=== PATIENT | female | born 1935 | race Caucasian/White ===

== ENCOUNTER 2024-02-20 18:22 | Emergency (ER) | payer MEDICARE, OTHER, SELFPAY ==
[2024-02-20 18:41] VITALS: BP 159/74; PULSE 68; RESP 16; TEMP 37.3; O2SAT 95
--- NOTE | 2024-02-20 18:48 | XR_ITS ---
Examination: CT brain head without contrast. 2-D sagittal coronal reconstructions Date and time of exam:February 20, 2024 1857 hrs. Comparison September 13, 2018 Indications: Onset dizziness and nausea today CTDI: vol (mGy):44.4 DLP: (mGycm):900 Technique: Multiple CT axial sections of the brain have been obtained, 5 mm slice thickness. Contrast has not been administered. 2-D sagittal, coronal reconstructions have been obtained Low dose protocols were performed. One or more of the following dose reduction techniques were used; automated exposure control, adjustment of the mA and/or KV according to patient size, use of iterative reconstruction technique. Findings: No significant ventricular enlargement. Intra-axial or extra-axial hemorrhage density is not seen. No mass effect or midline shift Basal cisterns are not remarkable. Fourth ventricle is midline. Cranial vault intact. Old infarct right cerebellar hemisphere Impression: Negative for acute hemorrhage, mass effect or midline shift If symptoms persist, consider brain MRI follow-up, stroke protocol
--- NOTE | 2024-02-20 18:49 | EKG_ITS ---
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
--- NOTE | 2024-02-20 18:56 | PD.EDDIZZY ---
ED Dizzyness RME/HPI General Chief Complaint: Dizziness Stated Complaint: Low blood pressure, low heart rate, dizzy Time Seen by Provider: 02/20/24 18:35 Arrival date/time: 02/20/24 18:22 RME / HPI RME / HPI Narrative: This section includes all my notes and documentations, including HPI, PE, and ED course. Marco A Chambers MD HPI: 88-year-old female here with several days of dizziness. She describes spinning sensation with nausea associated with moving, especially her head. No syncope or near syncope. No headache. No fever or chills. No cough or congestion. No chest pain or shortness of breath. No speech or visual impairment. No loss of power in the arms or legs. No chest pain or shortness of breath. No other complaints. ROS: All negative except as documented in HPI. Physical Exam: General: Alert and oriented. No acute distress when remaining still. Eyes: Conjunctivae and lids clear. EOMI. PERRL. ENT: No nasal congestion. Pharynx normal. Tympanic membrane normal bilaterally. Neck: Supple. No carotid bruit. No JVD. Heart: RRR. Lungs: No respiratory distress. Good air movement. No rhonchi, wheezing, rales. Abdomen: Soft and nontender. Legs: No clubbing, cyanosis, edema. Skin: Warm and dry. Neuro: Alert and oriented X 3. Cranial Nerves II-XII grossly intact. No peripheral motor deficits. I reviewed all diagnostic test results. My interpretation of the EKG is sinus rhythm with no acute ST?T changes. My review of the head CT report is no acute findings. Blood tests and urine tests unremarkable, including negative troponin and normal electrolytes. At this point, diagnoses include vertigo. Treatment here included Zofran and meclizine and scopolamine patch. Significant improvement noted. Recommended more outpatient workup. Based on my best medical judgment, made decision no further evaluation or treatment indicated at this time. Patient understands and agrees to the discharge instructions customized and printed, see below. Discharge instructions from Dr. Chambers: ? After extensive evaluation, there is no life-threatening condition.? Such as stroke or brain tumor or heart attack. -- Your severe symptoms are due to vertigo.? This is an inner ear problem that makes you feel like you are drunk or seasick.? See attached handout. -- Use scopolamine patch and/or meclizine for your severe symptoms. -- And Zofran for nausea/vomiting.? And increase oral fluid to prevent dehydration.? Maintain clear urine.? If dark or yellow, increase oral fluid. -- And do everything very slowly.? Including moving your head.? And when you sit up or stand up, wait a minute before you progress.? -- See your private doctor on 02/21/2024. If needed, ask to help you get more care not available here in the ER.? Such as MRI imaging of your brain, physical therapy, table tilt test, and referrals to see specialists (such as neurologist and ENT specialist). -- Seek immediate medical care with worsening or with any concerns. Marco A Chambers MD Related Data Home Medications ?Medication ?Instructions ?Recorded ?Confirmed lisinopril 20 1 tab PO QDAY 12/13/20 03/20/22 mg-hydrochlorothiazide 12.5 mg tablet aspirin 81 mg tablet 81 mg PO QDAY 12/14/20 03/20/22 liraglutide 0.6 mg/0.1 mL (18 mg/3 1.2 mg subcut QDAY 12/14/20 03/20/22 mL) subcutaneous pen injector (Victoza 3-Yariel) carvedilol 3.125 mg tablet 3.125 mg PO BID 03/20/22 03/20/22 Previous Rx's ?Medication ?Instructions ?Recorded meloxicam 7.5 mg tablet 7.5 mg PO QDAY #10 tabs 02/23/22 meclizine 25 mg tablet 25 mg PO BID PRN dizziness #20 tabs 02/20/24 ondansetron 4 mg disintegrating 4 mg PO TID PRN nausea and 02/20/24 tablet vomiting 5 days #10 tabs scopolamine base 1 mg over 3 days 1 mg topical .72 hour PRN 02/20/24 transdermal patch dizziness or vertigo #4 ea Allergies Allergy/AdvReac Type Severity Reaction Status Date / Time No Known Allergies Allergy Verified 03/20/22 05:14 Course Quality Measures none Orders Category Date Time Status EKG (ED ONLY) *Do not use* NOW Care 02/20/24 18:[address] head/brain wo con Stat Exams 02/20/24 18:48 Completed EKG (ED Only) Stat Exams 02/20/24 18:49 Draft CBC Stat Lab 02/20/24 19:11 Completed CMP [Comprehensive Metabolic Panel] Stat Lab 02/20/24 19:11 Completed Magnesium Stat Lab 02/20/24 19:11 Completed Troponin I Stat Lab 02/20/24 19:11 Completed UA, C/S IF [Urinalysis, C/S if Indicated] Stat Lab 02/20/24 19:54 Completed Meclizine HCl [Antivert] Med 02/20/24 18:47 Discontinued 12.5 mg PO X1 ONE Ondansetron Odt [Zofran Odt] Med 02/20/24 18:47 Discontinued 4 mg PO X1 ONE Scopolamine [Transderm-Scop Patch] Med 02/20/24 18:47 Discontinued 1 mg TOP X1 ONE Vital Signs Vital signs: Vital Signs Temperature 99.1 F 02/20/24 18:41 Pulse Rate 68 02/20/24 18:41 Respiratory Rate 16 02/20/24 18:41 Blood Pressure 159/74 H 02/20/24 18:41 Pulse Oximetry (%) 95 02/20/24 18:41 Oxygen Delivery Method Room Air 02/20/24 18:41 Dizziness Patient data External records reviewed:: [facility] [place] previous records Clinical information provided by:: patient and family Social determinants that could affect healthcare access:: none Patient has the following chronic illnesses:: History of CVA and HTN and DM How is presenting disease/condition affected by chronic disease/condition?: uneffected by Evaluation data The following diagnostics were reviewed and interpreted by me:: lab results, radiology exam(s) and EKG tracing(s) (My interpretation of the EKG is: Sinus rhythm (63 bpm) with nonspecific ST-T changes. Marco A Chambers MD) Lab and/or radiology exams considered but not ordered:: None Interpretation Summary: Vertigo Medications / Prescriptions Medications or Prescriptions considered but not ordered:: None Medication administrations:: Medication Administration History Discontinued Medications Meclizine HCl (Meclizine Hcl 25 Mg Tablet) 12.5 mg PO X1 ONE Stop: 02/20/24 18:48 Last Admin: 02/20/24 20:14 Dose: 12.5 mg Documented By: CVL Ondansetron HCl (Ondansetron Odt 4 Mg Tabrap) 4 mg PO X1 ONE; Protocol Stop: 02/20/24 18:48 Last Admin: 02/20/24 20:11 Dose: 4 mg Documented By: CVL Scopolamine (Scopolamine 1 Mg Tdsy) 1 mg TOP X1 ONE Stop: 02/20/24 18:48 Last Admin: 02/20/24 20:12 Dose: 1 mg Documented By: CVL Zofran and meclizine and scopolamine Consultations Consultation(s) initiated? (list below): No Diagnosis Dizziness Differential Diagnosis: adverse reaction to drug, benign paroxysmal positional vertigo, orthostatic hypotension, vertebral basilar insufficiency, cerebrovascular accident, acute vestibular neuronitis, transient cerebral ischemia and other (MS, electrolyte abnormalities) Most likely diagnosis given after review of the tests above:: Vertigo Admission Indicated Admission indicated?: not indicated Explain why admission is indicated or not indicated:: Admission criteria not met Admission Request Was there a request for admission?: No Disposition Plan Disposition Plan: Discharge Discharge Attestation Discharge Attestation: The patient and all family members were given an opportunity to ask questions and understood the discharge instructions. Discharge instructions specifically effects, indications for sooner follow up or return to the emergency department, and the expected course of current diagnosis. Patient condition: Stable Discharge Plan Plan Patient Disposition: HOME (Self Care) Prescriptions/Referrals Prescriptions/Med Rec: New ondansetron 4 mg tablet,disintegrating 4 mg PO TID PRN (Reason: nausea and vomiting) 5 Days Qty: 10 0RF meclizine 25 mg tablet 25 mg PO BID PRN (Reason: dizziness) Qty: 20 0RF scopolamine base 1 mg over 3 days patch 3 day 1 mg topical .72 hour PRN (Reason: dizziness or vertigo) Qty: 4 0RF No Action lisinopril-hydrochlorothiazide 20-12.5 mg tablet 1 tab PO QDAY aspirin 81 mg Tablet 81 mg PO QDAY Victoza 3-Yariel 0.6 mg/0.1 mL (18 mg/3 mL) Pen Injector 1.2 mg SUBCUT QDAY meloxicam 7.5 mg tablet 7.5 mg PO QDAY Qty: 10 0RF carvedilol 3.125 mg Tablet 3.125 mg PO BID Rx Instructions: must administer with a meal/food Referrals: Scott Smart([facility])MD [Primary Care Provider] - In 1 week Problem List Clinical Impression: Vertigo Patient/Caregiver Discharge Instructions Discharge Activity: activity as tolerated Education Materials: ED BPV Vertigo Additional Instructions: Discharge instructions from Dr. Chambers: ? After extensive evaluation, there is no life-threatening condition.? Such as stroke or brain tumor or heart attack. -- Your severe symptoms are due to vertigo.? This is an inner ear problem that makes you feel like you are drunk or seasick.? See attached handout. -- Use scopolamine patch and/or meclizine for your severe symptoms. -- And Zofran for nausea/vomiting.? And increase oral fluid to prevent dehydration.? Maintain clear urine.? If dark or yellow, increase oral fluid. -- And do everything very slowly.? Including moving your head.? And when you sit up or stand up, wait a minute before you progress.? -- See your private doctor on 02/21/2024. If needed, ask to help you get more care not available here in the ER.? Such as MRI imaging of your brain, physical therapy, table tilt test, and referrals to see specialists (such as neurologist and ENT specialist). -- Seek immediate medical care with worsening or with any concerns. Print Language: Persian Stand Alone Forms: [employer] Award Info., Patient Portal Info Letter
[2024-02-20 19:35] LABS: Basophils % (Auto) 1 % (0-2.5); Eosinophils # (Auto) 0.2 Thou/mm3 (0.0-0.5); Eosinophils % (Auto) 4 % (0-10); Hematocrit 40.3 % (36.0-46.0); Hemoglobin 13.4 g/dL (12.0-16.0); Immature Granulocytes % (Auto) 0 % (0-0); Immature Granulocytes Auto 0.01 Thou/mm3 (0.00-0.00); Lymphocytes # (Auto) 0.6 Thou/mm3 (1.0-4.8); Lymphocytes % (Auto) 12 % (10-50); Mean Corpuscular HGB Conc 33.3 g/dl (31.0-37.0); Mean Corpuscular Volume 87 fL (80-100); Monocytes # (Auto) 0.5 Thou/mm3 (0.0-0.8); Monocytes % (Auto) 11 % (0-12); Neutrophils # (Auto) 3.7 Thou/mm3 (1.8-7.7); Neutrophils % (Auto) 74 % (37-80); Nucleated Red Blood Cell % 0 /100 WBC (0); Platelet Count 301 Thou/mm3 (140-440); RDW Standard Deviation 46.7 fL (36.4-46.3); Red Blood Count 4.62 Miln/mm3 (4.00-5.20); White Blood Count 5.1 Thou/mm3 (3.6-11.0)
[2024-02-20 20:00] LABS: Collection Type, Urine Clean Catch
[2024-02-20 20:01] LABS: Alanine Aminotransferase < 7 U/L (10-49); Albumin, Serum 4.8 gm/dL (3.4-4.8); Albumin/Globulin Ratio 2.4 (1.2-2.2); Alkaline Phosphatase 101 U/L (46-116); Anion Gap 5 (7-16); Aspartate Amino Transferase 10 U/L (0-34); BUN/Creatinine Ratio 31 Ratio (12-20); Bilirubin,Total 0.6 mg/dL (0.3-1.2); Blood Urea Nitrogen 28 mg/dL (9-23); Calcium 9.9 mg/dL (8.3-10.6); Calcium (Corrected) 9.9 mg/dL (8.5-10.1); Carbon Dioxide 29.7 mMol/L (20.0-31.0); Chloride 99 mMol/L (98-107); Creatinine (Component) 0.9 mg/dL (0.6-1.3); Glucose 125 mg/dL (74-106); Osmolality,Calculated 274 (275-295); Potassium 3.9 mMol/L (3.4-5.1); Sodium 134 mMol/L (136-145); Total Protein 6.8 gm/dL (5.7-8.2); Troponin I < 0.020 ng/mL (0.0-0.045); eGFR > 60 See Note
[2024-02-20] MEDS: ONDANSETRON ODT 4 MG TABRAP PO (20:11)
[2024-02-20] MEDS: SCOPOLAMINE 1 MG TDSY TOP (20:12)
[2024-02-20 20:13] LABS: Bilirubin,Urine Negative (Negative); Blood,Urine Negative (Negative); Clarity,Urine Clear (Clear/Hazy); Color,Urine Lt-Yellow (Lt Yel-Yel); Culture Indicated,Urine Not Indicated; Glucose, Urine Negative (Negative); Ketones,Urine Negative (Negative); Leukocyte Esterase,Urine Positive (Negative); Nitrite,Urine Negative (Negative); Protein,Urine Negative (Neg - Trace); RBC,Urine 2 /hpf (0-3); Specific Gravity,Urine 1.019 (1.001-1.035); Squamous Epithelial Cell,Urine 1 /hpf (0-5); Urobilinogen,Urine Negative mg/dL (0.0-1.0); WBC,Urine 5 /hpf (0-5)
[2024-02-20] MEDS: MECLIZINE HCL 25 MG TABLET 12.5 MG PO (20:14)
[2024-02-20 20:58] VITALS: BP 148/74; PULSE 89; RESP 18; TEMP 36.9; O2SAT 97
== END 2024-02-20 21:00 | disposition home or self-care (01) ==
PROVIDERS: Emergency Provider Emergency Medicine; PCP Family Medicine
DX: R42 Dizziness and giddiness (principal); R11.0 Nausea; I10 Essential (primary) hypertension; E11.9 Type 2 diabetes mellitus without complications; Z86.73 Personal history of transient ischemic attack (TIA), and cerebral infarction without residual deficits
CPT/HCPCS: 36415; 70450; 80053; 81001; 83735; 84484; 85025; 93005; 99284; Q0162; A9270

== ENCOUNTER 2024-05-21 18:06 | Emergency (ER) | payer MEDICARE, OTHER, SELFPAY ==
[2024-05-21] VITALS (7 sets, daily range): BP systolic 135–206; BP diastolic 77–110; PULSE 60–687; RESP 16–24; TEMP 36.7; O2SAT 93–97; BMI 30.3
--- NOTE | 2024-05-21 19:51 | XR_ITS ---
Examination: AP chest single view TECHNIQUE: AP portable upright chest single view Exam date and time: May 21, 2024 1959 hours INDICATIONS: Patient fell today with injury of the chest, chest pain FINDINGS: Mild prominence of ventricle No pneumothorax Severe osteopenia Left shoulder arthroplasty Old right-sided rib fractures, no acute rib fractures IMPRESSION: No pneumothorax
--- NOTE | 2024-05-21 19:52 | XR_ITS ---
Examination:Right hip AP, lateral, AP pelvis 3 views Technique: Hip AP lateral, AP pelvis, 3 views Exam date and time May 21:2024 2000 hours INDICATIONS: Patient fell today within the right hip, right hip pain. FINDINGS: Severe osteopenia No acute right hip fracture or dislocation Left hip bones of the pelvis is intact IMPRESSION: No acute hip or pelvic fracture If pain persists recommend one-day follow-up AP pelvis.
[2024-05-21 19:59] LABS: Collection Type, Urine Catheter
--- NOTE | 2024-05-21 20:00 | PC.NURSE ---
Pt awake, [place], denies any pain to left hip, shortening of lt leg no external rotation noted. Pt able to move left leg without any problem. C/o mild pain to rt hip area, no shortening or external rotation noted. CMST to bilat feet intact. Pt also c/o neck and tail bone pain.
[2024-05-21 20:10] LABS: Bilirubin,Urine Negative (Negative); Blood,Urine Negative (Negative); Clarity,Urine Clear (Clear/Hazy); Color,Urine Yellow (Lt Yel-Yel); Glucose, Urine Negative (Negative); Hyaline Casts,Urine < 1 /hpf (0-1); Ketones,Urine 1+ (Negative); Leukocyte Esterase,Urine Positive (Negative); Nitrite,Urine Negative (Negative); PH,Urine 5.5 (5.0-7.0); Protein,Urine Negative (Neg - Trace); RBC,Urine 3 /hpf (0-3); Specific Gravity,Urine 1.025 (1.001-1.035); Squamous Epithelial Cell,Urine 2 /hpf (0-5); Urobilinogen,Urine Negative mg/dL (0.0-1.0); WBC,Urine 17 /hpf (0-5)
--- NOTE | 2024-05-21 20:42 | XR_ITS ---
Examination: CT cervical spine without contrast 2-D sagittal reconstructions 2-D coronal reconstructions 3-D reconstructions. Exam date and time:May 21, 2024 2109 hours INDICATIONS: Patient fell today with into the neck, neck pain CTDI:vol (mGy) 7.70 DLP: (mGycm) 164 Technique: Multiple 2 mm axial sections of the cervical spine have been obtained. The coronal and sagittal reconstructions have been obtained. 3-D reconstructions have been obtained. Low dose protocols were performed. One or more of the following dose reduction techniques were used; automated exposure control, adjustment of the mA and/or KV according to patient size, use of iterative reconstruction technique. Findings: Axial sections demonstrate intact base of the skull. C1 exhibit satisfactory relationship to the odontoid. No acute cervical vertebral body fracture seen. Alignment posterior spinous processes satisfactory. 37 mm left thyroid nodule Impression: No acute cervical fracture. Prominent left thyromegaly with large nodule replacing the left thyroid lobe, recommend elective thyroid sonography follow-up
--- NOTE | 2024-05-21 20:46 | EDNOTE_ITS ---
ED Fall Injury RME/HPI General Chief Complaint: Fall Stated Complaint: RIGHT HIP PAIN/ GROUND LEVEL FALL Time Seen by Provider: 05/21/24 19:45 Arrival date/time: 05/21/24 18:06 Limitations: no limitations RME / HPI RME / HPI Narrative: DR. FARMER MAIN ED EVALUATION: 88 year old female with past medical history significant for CVA, hypertension, and diabetes presents to the Emergency Department BIBA with complaint of right hip pain secondary to fall. Patient was getting out of the shower, slipped and fell on her right side. No loss of consciousness or head injury. The floor was wet and she slipped. No dizziness or lightheadedness before falling. No blood thinners. Related Data Home Medications ?Medication ?Instructions ?Recorded ?Confirmed lisinopril 20 1 tab PO QDAY 12/13/2003/20 mg-hydrochlorothiazide 12.5 mg tablet aspirin 81 mg tablet 81 mg PO QDAY 12/14/2003/20 liraglutide 0.6 mg/0.1 mL (18 mg/3 1.2 mg subcut QDAY 12/14/20 03/20/22 mL) subcutaneous pen injector (VicQBuyza 3-Yariel) carvedilol 3.125 mg tablet 3.125 mg PO BID 03/20/22 Previous Rx's ?Medication ?Instructions ?Recorded meloxicam 7.5 mg tablet 7.5 mg PO QDAY #10 tabs 01/27 meclizine 25 mg tablet 25 mg PO BID PRN dizziness # 20 tabs 02/20/24 scopolamine base 1 mg over 3 days 1 mg topical .72 jyoti r PRN 02/20/24 transdermal patch dizziness or vertigo #4 ea Allergies Allergy/AdvReac Type Severity Reaction Status Date / Time No Known Allergies Allergy Verified 03/20/22 05:14 Review of Systems Review of Systems Systems Reviewed: All systems reviewed, normal except as documented Narrative Review of Systems: GEN: No fever, no chills, no weight loss EYES: No discharge, no visual changes, no pain HEENT: No ear pain, no congestion, no sore throat PULM: No shortness of breath, no cough, no congestion CV: No chest pain, no dyspnea on exertion, no palpitations GI: No nausea, no vomiting, no diarrhea, no pain, no constipation : No frequency, no urgency and no dysuria MUSC/SKEL: + right hip pain secondary to fall, no back pain SKIN: No rash PSYCH: No hallucinations, no depression HEME/LYMPH: No easy bleeding or bruising tendencies NEURO: No weakness, no headache Past Medical History Past Medical History CARDIAC: Positive Hypertension RESPIRATORY: Positive Bronchitis and Pneumonia GASTROINTESTINAL: Positive Gastrointestinal Disorders, Colorectal Cancer and Obesity REPRODUCTIVE: Positive Previous Pregnancies ENT: Positive Cataracts ENDOCRINE: Positive Endocrine Disorders OTHER HISTORY: Positive Falls and Colorectal Cancer Surgical History SURGICAL: Positive Abdominal Surgery, Bowel Surgery and Joint Replacement Social History SMOKING STATUS: Never smoker SECOND HAND EXPOSURE: No SUBSTANCE USE: does not use ALCOHOL: Never ED Exam General Limitations: Present no limitations General appearance: Present alert and in no apparent distress Head Head exam: Present atraumatic, normocephalic and normal inspection Eye Eye exam: Present normal appearance, PERRL and EOMI ENT ENT exam: Present normal exam, normal oropharynx and mucous membranes moist Neck Neck exam: Present normal inspection, full ROM and trachea midline Chest Chest inspection: Present normal inspection and symmetric chest wall rise Respiratory Respiratory exam: Present normal lung sounds bilaterally Cardiovascular Cardiovascular exam: Present regular rate, normal rhythm and normal heart sounds Abdominal Exam Abdominal exam: Present soft and normal bowel sounds Extremities Exam Extremities exam: Present normal inspection and full ROM; Absent other (ecchymosis, contusions or swelling to the RLE) Back Exam Back exam: Present normal inspection and full ROM Neurological Exam Neurological exam: Present alert, oriented X3 and CN II-XII intact Psychiatric Psychiatric exam: Present normal affect and normal mood Skin Skin exam: Present warm, dry, intact and normal color Course Course Course Narrative: 2221: Spoke with the [id number], who does not want the patient to stand and ambulate until she gets a CT of her hip. I explained to her that we should attempt to stand and ambulate the patient in order to see if a CT hip is indicated, but she is adimant about getting the CT hip first. 0039: Patient is able to ambulate. Patient is stable to be discharged home. Quality Measures none Orders Category Date Time Status IV [Insert IV] NOW Care 05/21/24 23:[address] cervical spine wo con Stat Exams 05/21/24 20:[address] head/brain wo con Stat Exams 05/21/24 20:[address] hip RT wo con Stat Exams 05/21/24 22:20 Completed CXRP [XR chest 1V portable] Stat Exams 05/21/24 19:51 Completed XR hip RT w pelvis 2-3V Stat Exams 05/21/24 19:52 Completed CBC Stat Lab 05/21/24 20:46 Completed CMP [Comprehensive Metabolic Panel] Stat Lab 05/21/24 20:46 Completed Urinalysis Stat Lab 05/21/24 19:34 Completed Acetaminophen Tab [Tylenol ES Tab] Med 05/21/24 22:30 Discontinued 1,000 mg PO X1 ONE Potassium Chloride [K-Dur] Med 05/21/24 22:19 Discontinued 40 meq PO X1 ONE cefTRIAXone/D5w 1gm IV premix [Rocephin/D5w 1gm IV Med 05/21/24 20:45 Discontinued premix] 1 gm in 50 ml IV X1 fentaNYL INJ [Sublimaze Inj] Med 05/21/24 22:18 Discontinued 25 mcg IVP X1 ONE Vital Signs Vital signs: Vital Signs Temperature 98.1 F 05/21/24 19:06 Pulse Rate 66 05/21/24 19:06 Respiratory Rate 24 H 05/21/24 19:06 Blood Pressure 206/110 H 05/21/24 19:06 Pulse Oximetry (%) 94 L 05/21/24 19:06 Oxygen Delivery Method Room Air 05/21/24 19:06 Fall [facility] Narrative [facility] Narrative:: Elina Treadwell am scribing for and in the presence of Dr. Farmer. Patient data External records reviewed:: [facility] previous records (Reviewed last ED visit dated 02/20/24, discharged with the following: Vertigo) and EMS form Clinical information provided by:: patient and family Social determinants that could affect healthcare access:: none Patient has the following chronic illnesses:: CVA, hypertension, and diabetes How is presenting disease/condition affected by chronic disease/condition?: exacerbated by Evaluation data The following diagnostics were reviewed and interpreted by me:: lab results and radiology exam(s) Lab and/or radiology exams considered but not ordered:: none Interpretation Summary: Procedure(s): CT head/brain wo con Accession Number(s): [id number] cc: Katina Chambers ; Otoniel Booker MD; Britta Farmer MD~ Examination: CT brain head without contrast. 2-D sagittal coronal reconstructions Date and time of exam:May 21, 2024 2109 hours Comparison February 20, 2024 CTDI: vol (mGy):48.5 DLP: (mGycm):991 INDICATIONS: Patient fell today with injury to the head, head pain Technique: Multiple CT axial sections of the brain have been obtained, 5 mm slice thickness. Contrast has not been administered. 2-D sagittal, coronal reconstructions have been obtained Low dose protocols were performed. One or more of the following dose reduction techniques were used; automated exposure control, adjustment of the mA and/or KV according to patient size, use of iterative reconstruction technique. Findings: No significant ventricular enlargement. Old infarcts left caudate nucleus right cerebellar hemisphere Intra-axial or extra-axial hemorrhage density is not seen. No mass effect or midline shift Basal cisterns are not remarkable. Fourth ventricle is midline. Cranial vault intact. Impression: Negative for acute hemorrhage, mass effect or midline shift Dictated By: Otoniel Booker MD Procedure(s): CT cervical spine wo con Accession Number(s): [id number] cc: Katina Chambers ; Otoniel Booker MD; Britta Farmer MD~ Examination: CT cervical spine without contrast 2-D sagittal reconstructions 2-D coronal reconstructions 3-D reconstructions. Exam date and time:May 21, 2024 2109 hours INDICATIONS: Patient fell today with into the neck, neck pain CTDI:vol (mGy) 7.70 DLP: (mGycm) 164 Technique: Multiple 2 mm axial sections of the cervical spine have been obtained. The coronal and sagittal reconstructions have been obtained. 3-D reconstructions have been obtained. Low dose protocols were performed. One or more of the following dose reduction techniques were used; automated exposure control, adjustment of the mA and/or KV according to patient size, use of iterative reconstruction technique. Findings: Axial sections demonstrate intact base of the skull. C1 exhibit satisfactory relationship to the odontoid. No acute cervical vertebral body fracture seen. Alignment posterior spinous processes satisfactory. 37 mm left thyroid nodule Impression: No acute cervical fracture. Prominent left thyromegaly with large nodule replacing the left thyroid lobe, recommend elective thyroid sonography follow-up Dictated By: Otoniel Booker MD Procedure(s): XR hip RT w pelvis 2-3V Accession Number(s): [id number] cc: Katina Chambers ; Otoniel Booker MD; Britta Farmer MD~ Examination:Right hip AP, lateral, AP pelvis 3 views Technique: Hip AP lateral, AP pelvis, 3 views Exam date and time May 21 2000 hours INDICATIONS: Patient fell today within the right hip, right hip pain. FINDINGS: Severe osteopenia No acute right hip fracture or dislocation Left hip bones of the pelvis is intact IMPRESSION: No acute hip or pelvic fracture If pain persists recommend one-day follow-up AP pelvis. Dictated By: Otoniel Booker MD Procedure(s): XR chest 1V portable Accession Number(s): [id number] cc: Katina Chambers ; Otoniel Booker MD; Britta Farmer MD~ Examination: AP chest single view TECHNIQUE: AP portable upright chest single view Exam date and time: May 21, 2024 1959 hours INDICATIONS: Patient fell today with injury of the chest, chest pain FINDINGS: Mild prominence of ventricle No pneumothorax Severe osteopenia Left shoulder arthroplasty Old right-sided rib fractures, no acute rib fractures IMPRESSION: No pneumothorax Dictated By: Otoniel Booker MD [facility] Report Signed Patient: [facility]. Record#: [id number] Birthdate: 1935 Age/Sex: 88 / F Location: [facility] Attending Dr: Ordering Physician: Britta Farmer MD Date of Service: 05/21/24 Procedure(s): CT hip RT wo con Accession Number(s): [id number] cc: Katina Chambers ; Otoniel Booker MD; Britta Farmer MD~ Examination: CT right hip, without contrast. 2-D sagittal reconstructions. 2-D coronal reconstructions. 3-D reconstructions. Date and time of exam:May 21, 2024 10:55 PM INDICATIONS: Patient fell today with injury to the right hip, right hip pain CTDI: vol (mGy):7.70 DLP: (mGycm):267 Technique: Multiple 1.25 mm axial sections of the pelvis right hip have been obtained. 2-D sagittal and coronal reconstructions have been obtained. 3-D reconstructions have been obtained. Low dose protocols were performed. One or more of the following dose reduction techniques were used; automated exposure control, adjustment of the mA and/or KV according to patient size, use of iterative reconstruction technique. Findings: Severe osteopenia Advanced right hip osteoarthritis Old healed fracture left hip No acute right or left hip fracture Severe osteopenia No pelvic hematoma urinary bladder intact IMPRESSION: No acute hip or pelvic fracture noted. Given the severe osteopenia, follow-up AP pelvis in 1-2 days is still recommended if pain persists Dictated By: Otoniel Booker MD Signed By: <Electronically signed by Otoniel Booker MD in OV> 05/22/24 0002 Medications / Prescriptions Medications or Prescriptions considered but not ordered:: none Medication administrations:: Medication Administration History Discontinued Medications Acetaminophen (Acetaminophen 500 Mg Tablet) 1,000 mg PO X1 ONE Stop: 05/21/24 22:31 Last Admin: 05/21/24 22:36 Dose: 1,000 mg Documented By: LB Fentanyl Citrate (Fentanyl Cit Inj 50 Mcg/Ml Amp 2ml) 25 mcg IVP X1 ONE Stop: 05/21/24 22:19 Last Admin: 05/21/24 23:20 Dose: 25 mcg Documented By: LB Ceftriaxone Sodium/Dextrose (Rocephin/D5w 1gm Iv Premix) 1 gm in 50 mls @ 100 mls/hr IV X1 ONE Stop: 05/21/24 21:14 Last Infusion: 05/21/24 22:31 Dose: Infused Documented By: Admin: 05/21/24 22:01 Dose: 100 mls/hr Documented By: LB Potassium Chloride (Potassium Chloride 20 Meq Tabcr) 40 meq PO X1 ONE Stop: 05/21/24 22:20 Last Admin: 05/21/24 22:37 Dose: 40 meq Documented By: LB see above Consultations Consultation(s) initiated? (list below): No Diagnosis Fall Differential Diagnosis: other (hip fracture, hip contusion, fall) Most likely diagnosis given after review of the tests above:: see clinical impression below Admission Indicated Admission indicated?: not indicated Admission Request Was there a request for admission?: No Disposition Plan Disposition Plan: Discharge Discharge Attestation Discharge Attestation: The patient and all family members were given an opportunity to ask questions and understood the discharge instructions. Discharge instructions specifically effects, indications for sooner follow up or return to the emergency department, and the expected course of current diagnosis. Patient condition: Stable Discharge Plan Plan Patient Disposition: HOME (Self Care) Patient condition on transfer: Stable Prescriptions/Referrals Prescriptions/Med Rec: No Action lisinopril-hydrochlorothiazide 20-12.5 mg tablet 1 tab PO QDAY aspirin 81 mg Tablet 81 mg PO QDAY Victoza 3-Yariel 0.6 mg/0.1 mL (18 mg/3 mL) Pen Injector 1.2 mg SUBCUT QDAY meloxicam 7.5 mg tablet 7.5 mg PO QDAY Qty: 10 0RF meclizine 25 mg tablet 25 mg PO BID PRN (Reason: dizziness) Qty: 20 0RF scopolamine base 1 mg over 3 days patch 3 day 1 mg topical .72 hour PRN (Reason: dizziness or vertigo) Qty: 4 0RF carvedilol 3.125 mg Tablet 3.125 mg PO BID Rx Instructions: must administer with a meal/food Referrals: Katina Chambers [Primary Care Provider] - In 1 week Problem List Clinical Impression: Contusion, UTI (urinary tract infection), Acute hypokalemia Patient/Caregiver Discharge Instructions Print Language: Afghan Stand Alone Forms: [facility] Award Info., Patient Portal Info Letter
[2024-05-21 20:58] LABS: Basophils % (Auto) 0 % (0-2.5); Eosinophils # (Auto) 0.1 Thou/mm3 (0.0-0.5); Eosinophils % (Auto) 1 % (0-10); Hematocrit 37.5 % (36.0-46.0); Hemoglobin 12.8 g/dL (12.0-16.0); Immature Granulocytes % (Auto) 0 % (0-0); Immature Granulocytes Auto 0.02 Thou/mm3 (0.00-0.00); Lymphocytes # (Auto) 0.5 Thou/mm3 (1.0-4.8); Lymphocytes % (Auto) 6 % (10-50); Mean Corpuscular HGB Conc 34.1 g/dl (31.0-37.0); Mean Corpuscular Hemoglobin 28.9 pg (25.0-35.0); Mean Corpuscular Volume 85 fL (80-100); Monocytes # (Auto) 0.6 Thou/mm3 (0.0-0.8); Monocytes % (Auto) 8 % (0-12); Neutrophils # (Auto) 6.1 Thou/mm3 (1.8-7.7); Neutrophils % (Auto) 84 % (37-80); Nucleated Red Blood Cell % 0 /100 WBC (0); Platelet Count 235 Thou/mm3 (140-440); RDW Standard Deviation 45.9 fL (36.4-46.3); Red Blood Count 4.43 Miln/mm3 (4.00-5.20); White Blood Count 7.3 Thou/mm3 (3.6-11.0)
--- NOTE | 2024-05-21 21:13 | PC.NURSE ---
pt in ct-scan.
[2024-05-21 21:16] LABS: Alanine Aminotransferase 12 U/L (10-49); Albumin/Globulin Ratio 1.8 (1.2-2.2); Alkaline Phosphatase 81 U/L (46-116); Anion Gap 10 (7-16); Aspartate Amino Transferase 25 U/L (0-34); BUN/Creatinine Ratio 35 Ratio (12-20); Bilirubin,Total 0.7 mg/dL (0.3-1.2); Blood Urea Nitrogen 21 mg/dL (9-23); Calcium 9.5 mg/dL (8.3-10.6); Calcium (Corrected) 9.5 mg/dL (8.5-10.1); Carbon Dioxide 24.8 mMol/L (20.0-31.0); Chloride 105 mMol/L (98-107); Creatinine (Component) 0.6 mg/dL (0.6-1.3); Estimated Creatinine Clearance 60.4 mL/min (>60); Globulin 2.2 gm/dL (2.3-3.5); Glucose 138 mg/dL (74-106); Osmolality,Calculated 284 (275-295); Potassium 3.1 mMol/L (3.4-5.1); Sodium 140 mMol/L (136-145); Total Protein 6.2 gm/dL (5.7-8.2); eGFR > 60 See Note
[2024-05-21] MEDS: cefTRIAXone/D5w 1gm IV premix 1 GM/50 ML BAG IV (22:01)
--- NOTE | 2024-05-21 22:20 | XR_ITS ---
Examination: CT right hip, without contrast. 2-D sagittal reconstructions. 2-D coronal reconstructions. 3-D reconstructions. Date and time of exam:May 21, 2024 10:55 PM INDICATIONS: Patient fell today with injury to the right hip, right hip pain CTDI: vol (mGy):7.70 DLP: (mGycm):267 Technique: Multiple 1.25 mm axial sections of the pelvis right hip have been obtained. 2-D sagittal and coronal reconstructions have been obtained. 3-D reconstructions have been obtained. Low dose protocols were performed. One or more of the following dose reduction techniques were used; automated exposure control, adjustment of the mA and/or KV according to patient size, use of iterative reconstruction technique. Findings: Severe osteopenia Advanced right hip osteoarthritis Old healed fracture left hip No acute right or left hip fracture Severe osteopenia No pelvic hematoma urinary bladder intact IMPRESSION: No acute hip or pelvic fracture noted. Given the severe osteopenia, follow-up AP pelvis in 1-2 days is still recommended if pain persists
[2024-05-21] MEDS: ACETAMINOPHEN 500 MG TABLET 1000 MG PO (22:36)
[2024-05-21] MEDS: POTASSIUM CHLORIDE 20 mEq TABCR 40 MEQ PO (22:37)
--- NOTE | 2024-05-21 22:44 | PC.NURSE ---
to ct-scan via [facility]
[2024-05-21] MEDS: fentaNYL CIT INJ 50 mCg/ML AMP 2ML 25 MCG IVP (23:20)
--- NOTE | 2024-05-22 00:19 | PC.NURSE ---
Dr. Suarez in room taking to pt with regards to results and planb of care.
[2024-05-22 00:24] VITALS: BP 138/64; PULSE 78; RESP 18; TEMP 36.6; O2SAT 98
--- NOTE | 2024-05-22 00:38 | PC.NURSE ---
Pt able to ambulate with minimal assist, rock well.
== END 2024-05-22 00:56 | disposition home or self-care (01) ==
PROVIDERS: Emergency Provider Emergency Medicine; PCP Nurse Practitioner Family
DX: S70.01XA Contusion of right hip, initial encounter (principal); N39.0 Urinary tract infection, site not specified; E87.6 Hypokalemia; M85.88 Other specified disorders of bone density and structure, other site; S29.9XXA Unspecified injury of thorax, initial encounter; E01.0 Iodine-deficiency related diffuse (endemic) goiter; S09.90XA Unspecified injury of head, initial encounter; W01.0XXA Fall on same level from slipping, tripping and stumbling without subsequent striking against object, initial encounter
CPT/HCPCS: 36415; 70450; 71045; 72125; 73502; 73700; 80053; 81001; 85025; 96365; 96374; 99284; J0696; J3010; A9270

== ENCOUNTER → 2024-05-28 | Outpatient (CLI) | payer MEDICARE, SELFPAY ==
--- NOTE | 2024-05-28 | XR_ITS ---
Examination: Thyroid sonography complete TECHNIQUE: Grayscale sonographic images thyroid lobes with color flow analysis Exam date and time: May 28, 2024 1343 hours INDICATIONS: Thyroid nodules on CT examination May 21, 2024, 37 mm left thyroid lobe FINDINGS: Right thyroid 4.1 cm Lower pole nodule 9 x 7 mm Left thyroid 6.2 cm Left thyroid is replaced by vascular nodule 5.8 x 4.0 x 4.7 cm IMPRESSION: Recommend ultrasound-guided fine-needle laceration of large vascular left thyroid nodule
== END | disposition home or self-care (01) ==
LOC: CDIM 13:23
PROVIDERS: PCP Family Medicine; Referring Provider Nurse Practitioner Family; Visit Provider Nurse Practitioner Family
DX: E04.1 Nontoxic single thyroid nodule (principal)
CPT/HCPCS: 76536

== ENCOUNTER → 2024-05-29 | Outpatient (CLI) | payer MEDICARE, SELFPAY ==
[2024-05-29 10:45] LABS: Glucose Estimated Average 146 mg/dL (80-131); Hemoglobin A1C 6.7 % Hgb (4.8-6.0)
[2024-05-29 11:02] LABS: Anion Gap 8 (7-16); BUN/Creatinine Ratio 29 Ratio (12-20); Blood Urea Nitrogen 20 mg/dL (9-23); Calcium 9.1 mg/dL (8.3-10.6); Carbon Dioxide 29.6 mMol/L (20.0-31.0); Cardiac Risk Estimate 2.8 RATIO (3.7-5.6); Chloride 103 mMol/L (98-107); Cholesterol 175 mg/dL (132-200); Creatinine (Component) 0.7 mg/dL (0.6-1.3); Free T4 (Free Thyroxine) 1.21 ng/dL (0.89-1.76); Glucose 133 mg/dL (74-106); HDL Cholesterol 62 mg/dL (40-60); LDL Cholesterol,Calculated 92 mg/dL (0-130); Magnesium 1.9 mg/dL (1.6-2.6); Osmolality,Calculated 285 (275-295); Potassium 4.4 mMol/L (3.4-5.1); Sodium 141 mMol/L (136-145); Triglycerides 106 mg/dL (30-150); eGFR > 60 See Note
[2024-05-29 11:44] LABS: Creatinine MALB Rnd Ur 86 mg/dL (30-125); Microalbumin Creat Ratio 8 mg/gCrea (<30); Microalbumin, Random Urine 7 mg/L (0-300)
[2024-05-29 14:05] LABS: Vitamin D 25 Hydroxy Total 32.8 ng/mL (7.3-40.2)
[2024-05-29 15:54] LABS: Vitamin B12 170 pg/mL (211-911)
[2024-06-01 07:15] LABS: Thyroid Peroxidase Antibodies* <1 IU/mL (<9)
== END | disposition home or self-care (01) ==
LOC: COPL 09:40
PROVIDERS: PCP Nurse Practitioner Family; Referring Provider Nurse Practitioner Family; Visit Provider Nurse Practitioner Family
DX: E04.1 Nontoxic single thyroid nodule (principal); E87.6 Hypokalemia; E11.65 Type 2 diabetes mellitus with hyperglycemia; E55.9 Vitamin D deficiency, unspecified; E78.5 Hyperlipidemia, unspecified; I10 Essential (primary) hypertension; E53.8 Deficiency of other specified B group vitamins
CPT/HCPCS: 36415; 80048; 80061; 82043; 82306; 82570; 82607; 83036; 83735; 84439; 84443; 86376

== ENCOUNTER → 2024-08-17 | Outpatient (CLI) | payer MEDICARE, SELFPAY ==
--- NOTE | 2024-08-17 | XR_ITS ---
Examination:Right hip AP, lateral, AP pelvis 3 views Technique: Hip AP lateral, AP pelvis, 3 views Exam date and time:August 17, 2024 1148 hours INDICATIONS: Right hip pain getting worse FINDINGS: Severe right hip osteoarthritis, severe joint space spurring and subarticular cyst formation Old healed left hip fracture, severe osteopenia IMPRESSION: Severe right hip osteoarthritis.
== END | disposition home or self-care (01) ==
LOC: CDIM 11:24
PROVIDERS: PCP Nurse Practitioner Family; Referring Provider Nurse Practitioner Family; Visit Provider Nurse Practitioner Family
DX: M16.11 Unilateral primary osteoarthritis, right hip (principal)
CPT/HCPCS: 73502

== ENCOUNTER 2024-09-10 08:39 | Emergency (ER) | payer MEDICARE, SELFPAY ==
[2024-09-10 08:42] VITALS: BP 185/107; PULSE 51; RESP 20; TEMP 36.6; O2SAT 95
[2024-09-10 09:01] VITALS: PULSE 96; BMI 29.2
--- NOTE | 2024-09-10 09:07 | PD.EDHIP ---
Lower Extremity Injury RME/HPI General Chief Complaint: Hip Injury/Pain Stated Complaint: HIP PAIN Time Seen by Provider: 09/10/24 08:59 Arrival date/time: 09/10/24 08:39 Limitations: no limitations RME / HPI RME / HPI Narrative: DR. ELLIOTT MAIN ED EVALUATION: 88 year old female presents to the Emergency Department [facility] with complaint of new-onset left hip pain beginning around 0600 hours today. The patient has a history of chronic right hip pain, but the left-sided pain is new. She reports being able to ambulate with a walker, though with discomfort. Denies any falls, trauma, loss of consciousness, or recent heavy lifting. Per [id number], the patient?s blood pressure was noted to be slightly elevated at home, prompting concern and presentation to the ED. No associated symptoms such as numbness, weakness, or bowel/bladder changes reported at this time. PMHx: Diabetes, hypertension, and a hysterectomy. Family history is significant for lymphoma (mother). Social Hx: No tobacco, alcohol, or substance use. Related Data Home Medications ?Medication ?Instructions ?Recorded ?Confirmed lisinopril 20 1 tab PO QDAY 12/13/20 03/20/22 mg-hydrochlorothiazide 12.5 mg tablet aspirin 81 mg tablet 81 mg PO QDAY 12/14/20 03/20/22 liraglutide 0.6 mg/0.1 mL (18 mg/3 1.2 mg subcut QDAY 12/14/20 03/20/22 mL) subcutaneous pen injector (Victoza 3-Yariel) carvedilol 3.125 mg tablet 3.125 mg PO BID 03/20/22 03/20/22 Previous Rx's ?Medication ?Instructions ?Recorded meloxicam 7.5 mg tablet 7.5 mg PO QDAY #10 tabs 02/23/22 meclizine 25 mg tablet 25 mg PO BID PRN dizziness #20 tabs 02/20/24 scopolamine base 1 mg over 3 days 1 mg topical .72 hour PRN 02/20/24 transdermal patch dizziness or vertigo #4 ea cephalexin 500 mg capsule 500 mg PO TID #21 caps 05/22/24 tramadol 50 mg tablet 50 mg PO Q8H PRN pain #14 tabs 09/10/24 Allergies Allergy/AdvReac Type Severity Reaction Status Date / Time No Known Allergies Allergy Verified 09/10/24 09:16 Review of Systems Review of Systems Systems Reviewed: All systems reviewed, normal except as documented Past Medical History Past Medical History CARDIAC: Positive Hypertension RESPIRATORY: Positive Bronchitis and Pneumonia GASTROINTESTINAL: Positive Gastrointestinal Disorders, Colorectal Cancer and Obesity REPRODUCTIVE: Positive Previous Pregnancies ENT: Positive Cataracts ENDOCRINE: Positive Endocrine Disorders OTHER HISTORY: Positive Falls and Colorectal Cancer Surgical History SURGICAL: Positive Abdominal Surgery, Bowel Surgery and Joint Replacement Social History SMOKING STATUS: Never smoker SECOND HAND EXPOSURE: No SUBSTANCE USE: does not use ALCOHOL: Never ED Exam General Limitations: Present no limitations General appearance: Present alert and in no apparent distress Head Head exam: Present atraumatic, normocephalic and normal inspection Eye Eye exam: Present normal appearance, PERRL and EOMI ENT ENT exam: Present normal exam, normal oropharynx and mucous membranes moist Neck Neck exam: Present normal inspection, full ROM and trachea midline Chest Chest inspection: Present normal inspection and symmetric chest wall rise Respiratory Respiratory exam: Present normal lung sounds bilaterally Cardiovascular Cardiovascular exam: Present regular rate, normal rhythm and normal heart sounds Abdominal Exam Abdominal exam: Present soft and normal bowel sounds Extremities Exam Extremities exam: Present other (slightly restricted external rotation of the left hip) Back Exam Back exam: Present normal inspection and full ROM Neurological Exam Neurological exam: Present alert, oriented X3 and CN II-XII intact Psychiatric Psychiatric exam: Present normal affect and normal mood Skin Skin exam: Present warm, dry, intact and normal color Course Quality Measures none Orders Category Date Time Status Antique Collector NOW Care 09/10/24 09:10 Active Continuous Pulse Oximetry NOW Care 09/10/24 09:10 Completed EKG (ED ONLY) *Do not use* NOW Care 09/10/24 09:10 Completed Insert IV NOW Care 09/10/24 09:[address] pelvis wo con Stat Exams 09/10/24 09:10 Completed EKG (ED Only) Stat Exams 09/10/24 09:10 Draft XR chest 1V portable Stat Exams 09/10/24 09:10 Completed CBC Stat Lab 09/10/24 10:02 Completed Comprehensive Metabolic Panel Stat Lab 09/10/24 10:02 Completed Partial Thromboplastin Time Stat Lab 09/10/24 10:02 Completed Prothrombin Time with INR Stat Lab 09/10/24 10:02 Completed Urinalysis Stat Lab 09/10/24 09:10 Ordered Famotidine Inj [Pepcid Inj] Med 09/10/24 09:11 Discontinued 20 mg IVP X1 ONE Ketorolac Inj [Toradol Inj] Med 09/10/24 09:11 Discontinued 15 mg IVP X1 ONE Morphine Inj Med 09/10/24 09:11 Discontinued 4 mg IVP X1 ONE Ondansetron Inj [Zofran Inj] Med 09/10/24 09:11 Discontinued 4 mg IVP X1 ONE Sodium Chloride 0.9% 1000 ml [Ns] 1,000 ml Med 09/10/24 09:10 Active IV 100 mls/hr Vital Signs Vital signs: Vital Signs Temperature 97.8 F 09/10/24 08:42 Pulse Rate 51 L 09/10/24 08:42 Respiratory Rate 20 09/10/24 08:42 Blood Pressure 185/107 H 09/10/24 08:42 Pulse Oximetry (%) 95 09/10/24 08:42 Oxygen Delivery Method Room Air 09/10/24 08:42 Extremity Injury, Lower MDM Narrative MDM Narrative:: I, Elina Gupta am scribing for and in the presence of Dr. Elliott. Patient data External records reviewed:: [facility] previous records and EMS form Clinical information provided by:: patient, EMS and family Social determinants that could affect healthcare access:: none Patient has the following chronic illnesses:: PMHx: Diabetes, hypertension, and a hysterectomy. Family history is significant for lymphoma (mother). Social Hx: No tobacco, alcohol, or substance use. How is presenting disease/condition affected by chronic disease/condition?: uneffected by Evaluation data The following diagnostics were reviewed and interpreted by me:: lab results, radiology exam(s) and EKG tracing(s) (My interpretation: EKG performed at 0920 hours, sinus bradycardia, rate 51, no acute changes, no STEMI) Lab and/or radiology exams considered but not ordered:: none Interpretation Summary: Procedure(s): CT pelvis wo [facility] Accession Number(s): [id number] cc: Jun Elliott MD; Katina Chambers ; Otoniel Booker MD~ Examination: CT pelvis without intravenous contrast. 2-D sagittal and coronal reconstructions. Date and time of exam:September 10, 2024, 0942 hours INDICATIONS: Left hip swelling and pain today CTDI: vol (mGy) :9.62 DLP: (mGycm) : 302 Technique: Multiple 3 mm axial sections of the pelvis have been obtained with the 64 slice high resolution scanner. 2-D sagittal and coronal reconstructions. Low dose protocols were performed. One or more of the following dose reduction techniques were used; automated exposure control, adjustment of the mA and/or KV according to patient size, use of iterative reconstruction technique. Findings: Aortic calcification no aneurysmal dilatation Left colostomy defect Urinary bladder intact Severe osteopenia Iliac bones appear intact as well as anterior rami Healed left hip fracture No acute hip or pelvic fracture Advanced right hip osteoarthritis Moderate left hip osteoarthritis IMPRESSION: Advanced right hip osteoarthritis Moderate left hip osteoarthritis No acute hip or pelvic fracture Dictated By: Otoniel Booker MD Procedure(s): XR chest 1V portable Accession Number(s): [id number] cc: Jun Elliott MD; Katina Chambers ; Otoniel Booker MD~ Examination: AP chest single view Technique one AP portable upright chest single view Date and time: September 10, 2024, 0914 hours INDICATIONS: Coughing today. FINDINGS: Mild enlargement cardiac contour. Moderate vascular congestion. No lobar pneumonia. Prominent osteopenia IMPRESSION: Moderate vascular congestion Dictated By: Otoniel Booker MD Medications / Prescriptions Medications or Prescriptions considered but not ordered:: none Medication administrations:: Medication Administration History Sodium Chloride (Ns) 1,000 mls @ 100 mls/hr IV .Q10H ONE Stop: 09/10/24 19:09 Last Admin: 09/10/24 10:08 Dose: 100 mls/hr Documented By: RD Discontinued Medications Famotidine (Famotidine Inj 10 Mg/Ml Vial 2 Ml) 20 mg IVP X1 ONE Stop: 09/10/24 09:12 Last Admin: 09/10/24 10:09 Dose: 20 mg Documented By: PALLAVI Ketorolac Tromethamine (Ketorolac Inj 30 Mg/Ml Vial) 15 mg IVP X1 ONE Stop: 09/10/24 09:12 Last Admin: 09/10/24 10:09 Dose: 15 mg Documented By: PALLAVI Morphine Sulfate (Morphine Sulf Inj 10 Mg/Ml Vial) 4 mg IVP X1 ONE Stop: 09/10/24 09:12 Last Admin: 09/10/24 10:09 Dose: 4 mg Documented By: PALLAVI Ondansetron HCl (Ondansetron Inj 2 Mg/Ml Inj 2 Ml) 4 mg IVP X1 ONE; Protocol Stop: 09/10/24 09:12 Last Admin: 09/10/24 10:08 Dose: 4 mg Documented By: PALLAVI see above Consultations Consultation(s) initiated? (list below): No Diagnosis Extremity Injury, Lower Differential Diagnosis: fracture of hip and other (hip contusion, osteoarthritis of bilateral hips) Most likely diagnosis given after review of the tests above:: Osteoarthritis of bilateral hips Admission Indicated Admission indicated?: not indicated Admission Request Was there a request for admission?: No Disposition Plan Disposition Plan: Discharge Discharge Attestation Discharge Attestation: The patient and all family members were given an opportunity to ask questions and understood the discharge instructions. Discharge instructions specifically effects, indications for sooner follow up or return to the emergency department, and the expected course of current diagnosis. Patient condition: Stable Discharge Plan Plan Patient Disposition: HOME (Self Care) Patient condition on transfer: Stable Prescriptions/Referrals Prescriptions/Med Rec: New tramadol 50 mg tablet 50 mg PO Q8H MDD 3 PRN (Reason: pain) Qty: 14 0RF No Action lisinopril-hydrochlorothiazide 20-12.5 mg tablet 1 tab PO QDAY aspirin 81 mg Tablet 81 mg PO QDAY Victoza 3-Yariel 0.6 mg/0.1 mL (18 mg/3 mL) Pen Injector 1.2 mg SUBCUT QDAY meloxicam 7.5 mg tablet 7.5 mg PO QDAY Qty: 10 0RF meclizine 25 mg tablet 25 mg PO BID PRN (Reason: dizziness) Qty: 20 0RF scopolamine base 1 mg over 3 days patch 3 day 1 mg topical .72 hour PRN (Reason: dizziness or vertigo) Qty: 4 0RF cephalexin 500 mg capsule 500 mg PO TID Qty: 21 0RF carvedilol 3.125 mg Tablet 3.125 mg PO BID Rx Instructions: must administer with a meal/food Referrals: Katina Chambers [Primary Care Provider] - In 1 week Problem List Clinical Impression: Osteoarthritis of hips, bilateral Patient/Caregiver Discharge Instructions Education Materials: Hip Osteoarthritis Additional Instructions: Take Tylenol 500 mg 2 tabs every 6 hours PLUS Advil 200 mg gel 2 tablets as needed for pain. Please follow-up with your primary care physician within 2-3 days and with orthopedic. Return to the Emergency Department as needed. Print Language: Uzbek Stand Alone Forms: [employer] Award Info., Patient Portal Info Letter
--- NOTE | 2024-09-10 09:10 | XR_ITS ---
Examination: CT pelvis without intravenous contrast. 2-D sagittal and coronal reconstructions. Date and time of exam:September 10, 2024, 0942 hours INDICATIONS: Left hip swelling and pain today CTDI: vol (mGy) :9.62 DLP: (mGycm) : 302 Technique: Multiple 3 mm axial sections of the pelvis have been obtained with the 64 slice high resolution scanner. 2-D sagittal and coronal reconstructions. Low dose protocols were performed. One or more of the following dose reduction techniques were used; automated exposure control, adjustment of the mA and/or KV according to patient size, use of iterative reconstruction technique. Findings: Aortic calcification no aneurysmal dilatation Left colostomy defect Urinary bladder intact Severe osteopenia Iliac bones appear intact as well as anterior rami Healed left hip fracture No acute hip or pelvic fracture Advanced right hip osteoarthritis Moderate left hip osteoarthritis IMPRESSION: Advanced right hip osteoarthritis Moderate left hip osteoarthritis No acute hip or pelvic fracture
--- NOTE | 2024-09-10 09:10 | XR_ITS ---
Examination: AP chest single view Technique one AP portable upright chest single view Date and time: September 10, 2024, 0914 hours INDICATIONS: Coughing today. FINDINGS: Mild enlargement cardiac contour. Moderate vascular congestion. No lobar pneumonia. Prominent osteopenia IMPRESSION: Moderate vascular congestion
--- NOTE | 2024-09-10 09:10 | EKG_ITS ---
[facility] Test Date: 2024-09-10 Pat Name: JEN HUGHES Department: Room: - Gender: Female Project Design Engineer: : [id number] Requested By: Jun Caban Order Number: [id number] Reading MD: Jun Caban Measurements Intervals [place] Rate: 51 P: AL: QRS: 4 QRSD: 90 T: 35 QT: 451 QTc: 418 Interpretive Statements SUPRAVENTRICULAR BRADYCARDIA ABNORMAL RHYTHM ECG Compared to ECG 02/20/2024 18:58:32 Sinus rhythm no longer present Ventricular premature complex(es) no longer present T-wave abnormality no longer present /store/S0/[id number]/[id number].pdf
[2024-09-10 10:06] VITALS: PULSE 53
[2024-09-10] MEDS: ONDANSETRON INJ 2 MG/ML INJ 2 ML 4 MG IVP (10:08)
[2024-09-10] MEDS: SODIUM CHLORIDE 0.9% 1000 ML 1,000 ML 100 ML IV (10:08)
[2024-09-10] MEDS: FAMOTIDINE INJ 10 MG/ML VIAL 2 ML 20 MG IVP (10:09)
[2024-09-10] MEDS: KETOROLAC INJ 30 MG/ML VIAL 15 MG IVP (10:09)
[2024-09-10] MEDS: MORPHINE SULF INJ 10 MG/ML VIAL 4 MG IVP (10:09)
[2024-09-10 10:23] LABS: Basophils # (Auto) 0.0 Thou/mm3 (0.0-0.2); Basophils % (Auto) 0 % (0-2.5); Eosinophils # (Auto) 0.0 Thou/mm3 (0.0-0.5); Eosinophils % (Auto) 0 % (0-10); Hematocrit 40.8 % (36.0-46.0); Hemoglobin 13.8 g/dL (12.0-16.0); Immature Granulocytes Auto 0.05 Thou/mm3 (0.00-0.00); Lymphocytes # (Auto) 0.3 Thou/mm3 (1.0-4.8); Lymphocytes % (Auto) 4 % (10-50); Mean Corpuscular HGB Conc 33.8 g/dl (31.0-37.0); Mean Corpuscular Hemoglobin 29.1 pg (25.0-35.0); Mean Corpuscular Volume 86 fL (80-100); Monocytes # (Auto) 0.4 Thou/mm3 (0.0-0.8); Monocytes % (Auto) 4 % (0-12); Neutrophils # (Auto) 7.6 Thou/mm3 (1.8-7.7); Neutrophils % (Auto) 91 % (37-80); Nucleated Red Blood Cell # 0.00 Thou/mm3 (0.00-0.00); Nucleated Red Blood Cell % 0 /100 WBC (0); Platelet Count 258 Thou/mm3 (140-440); RDW Standard Deviation 45.8 fL (36.4-46.3); Red Blood Count 4.75 Miln/mm3 (4.00-5.20); White Blood Count 8.3 Thou/mm3 (3.6-11.0)
[2024-09-10 10:40] LABS: Alanine Aminotransferase 11 U/L (10-49); Albumin, Serum 4.7 gm/dL (3.4-4.8); Albumin/Globulin Ratio 2.0 (1.2-2.2); Alkaline Phosphatase 138 U/L (46-116); Anion Gap 8 (7-16); Aspartate Amino Transferase 16 U/L (0-34); BUN/Creatinine Ratio 21 Ratio (12-20); Bilirubin,Total 0.7 mg/dL (0.3-1.2); Blood Urea Nitrogen 17 mg/dL (9-23); Calcium 9.6 mg/dL (8.3-10.6); Calcium (Corrected) 9.6 mg/dL (8.5-10.1); Carbon Dioxide 27.0 mMol/L (20.0-31.0); Chloride 103 mMol/L (98-107); Creatinine (Component) 0.8 mg/dL (0.6-1.3); Estimated Creatinine Clearance 44.5 mL/min (>60); Globulin 2.3 gm/dL (2.3-3.5); Glucose 195 mg/dL (74-106); Osmolality,Calculated 282 (275-295); Potassium 3.6 mMol/L (3.4-5.1); Sodium 138 mMol/L (136-145); Total Protein 7.0 gm/dL (5.7-8.2); eGFR > 60 See Note
[2024-09-10 10:43] LABS: INR 1.0 (0.9-1.3); Partial Thromboplastin Time 26.4 Seconds (22.0-36.0); Prothrombin Time 10.7 Seconds (9.0-12.2)
[2024-09-10 11:37] VITALS: BP 151/66; PULSE 60; RESP 17; TEMP 36.4; O2SAT 93
== END 2024-09-10 12:08 | disposition home or self-care (01) ==
PROVIDERS: Emergency Provider Family Medicine; PCP Nurse Practitioner Family
DX: M16.0 Bilateral primary osteoarthritis of hip (principal); R00.1 Bradycardia, unspecified; R09.89 Other specified symptoms and signs involving the circulatory and respiratory systems; I10 Essential (primary) hypertension
CPT/HCPCS: 36415; 71045; 72192; 80053; 81001; 85025; 85610; 85730; 93005; 96374; 96375; 99284; J1885; J2270; J2405; J3490; J7030

== ENCOUNTER → 2024-09-23 | Outpatient (CLI) | payer MEDICARE, SELFPAY ==
[2024-09-23 11:12] LABS: Collection Type, Urine Clean Catch
[2024-09-23 11:53] LABS: Basophils # (Auto) 0.0 Thou/mm3 (0.0-0.2); Basophils % (Auto) 1 % (0-2.5); Eosinophils # (Auto) 0.2 Thou/mm3 (0.0-0.5); Eosinophils % (Auto) 4 % (0-10); Hematocrit 39.4 % (36.0-46.0); Hemoglobin 12.8 g/dL (12.0-16.0); Immature Granulocytes Auto 0.05 Thou/mm3 (0.00-0.00); Lymphocytes # (Auto) 0.6 Thou/mm3 (1.0-4.8); Lymphocytes % (Auto) 9 % (10-50); Mean Corpuscular HGB Conc 32.5 g/dl (31.0-37.0); Mean Corpuscular Hemoglobin 28.6 pg (25.0-35.0); Mean Corpuscular Volume 88 fL (80-100); Monocytes # (Auto) 0.6 Thou/mm3 (0.0-0.8); Monocytes % (Auto) 10 % (0-12); Neutrophils # (Auto) 5.1 Thou/mm3 (1.8-7.7); Neutrophils % (Auto) 76 % (37-80); Nucleated Red Blood Cell # 0.00 Thou/mm3 (0.00-0.00); Nucleated Red Blood Cell % 0 /100 WBC (0); Platelet Count 329 Thou/mm3 (140-440); RDW Standard Deviation 47.3 fL (36.4-46.3); Red Blood Count 4.47 Miln/mm3 (4.00-5.20); White Blood Count 6.6 Thou/mm3 (3.6-11.0)
[2024-09-23 11:56] LABS: B-Type Natriuretic Peptide 51 pg/mL (0-100)
[2024-09-23 11:57] LABS: Glucose Estimated Average 148 mg/dL (80-131); Hemoglobin A1C 6.8 % Hgb (4.8-6.0)
[2024-09-23 12:15] LABS: Bilirubin,Urine Negative (Negative); Blood,Urine Negative (Negative); Clarity,Urine Clear (Clear/Hazy); Color,Urine Lt-Yellow (Lt Yel-Yel); Glucose, Urine Negative (Negative); Ketones,Urine Trace (Negative); Leukocyte Esterase,Urine Positive (Negative); Nitrite,Urine Negative (Negative); PH,Urine 6.5 (5.0-7.0); Protein,Urine Negative (Neg - Trace); RBC,Urine 2 /hpf (0-3); Specific Gravity,Urine 1.018 (1.001-1.035); Squamous Epithelial Cell,Urine 2 /hpf (0-5); Urobilinogen,Urine Negative mg/dL (0.0-1.0); WBC,Urine 15 /hpf (0-5)
[2024-09-23 12:15] LABS: Alanine Aminotransferase < 7 U/L (10-49); Albumin, Serum 4.0 gm/dL (3.4-4.8); Albumin/Globulin Ratio 2.0 (1.2-2.2); Alkaline Phosphatase 113 U/L (46-116); Anion Gap 8 (7-16); Aspartate Amino Transferase 12 U/L (0-34); BUN/Creatinine Ratio 19 Ratio (12-20); Bilirubin,Total 0.5 mg/dL (0.3-1.2); Blood Urea Nitrogen 13 mg/dL (9-23); Calcium 9.4 mg/dL (8.3-10.6); Calcium (Corrected) 9.4 mg/dL (8.5-10.1); Carbon Dioxide 29.0 mMol/L (20.0-31.0); Chloride 100 mMol/L (98-107); Creatinine (Component) 0.7 mg/dL (0.6-1.3); Globulin 2.0 gm/dL (2.3-3.5); Glucose 126 mg/dL (74-106); Osmolality,Calculated 275 (275-295); Potassium 3.8 mMol/L (3.4-5.1); Sodium 137 mMol/L (136-145); Total Protein 6.0 gm/dL (5.7-8.2); eGFR > 60 See Note
[2024-09-23 12:48] LABS: Culture Indicated,Urine Yes
== END | disposition home or self-care (01) ==
LOC: COPL 10:26
PROVIDERS: PCP Nurse Practitioner Family; Referring Provider Nurse Practitioner Family; Visit Provider Nurse Practitioner Family
DX: Z01.818 Encounter for other preprocedural examination (principal); I10 Essential (primary) hypertension; E11.9 Type 2 diabetes mellitus without complications
CPT/HCPCS: 36415; 80053; 81001; 83036; 83880; 85025; 87077; 87081; 87086; 87186

== ENCOUNTER → 2024-11-05 | Outpatient (CLI) | payer MEDICARE, SELFPAY ==
--- NOTE | 2024-11-05 12:38 | XR_ITS ---
Examination: AP right hip, AP pelvis 2 views TECHNIQUE: AP right hip, AP pelvis supine 2 views Date and time: November 05, 2024 1247 hours INDICATIONS: Right hip replacement October 21, 2024 FINDINGS: Total right hip arthroplasty. Satisfactory alignment. Severe osteopenia. Healed left hip fracture. Moderate narrowing left hip joint Bones of the pelvis intact IMPRESSION: Total right hip arthroplasty with satisfactory alignment.
== END | disposition home or self-care (01) ==
LOC: CDIM 12:15
PROVIDERS: PCP Family Medicine; Referring Provider Orthopaedic Surgery; Visit Provider Orthopaedic Surgery
DX: M25.551 Pain in right hip (principal); Z96.641 Presence of right artificial hip joint
CPT/HCPCS: 72170